=== PATIENT | female | born 1965 | race Caucasian/White ===

== ENCOUNTER 2017-01-12 02:17 | Emergency (ER) | payer OTHER ==
[~2017-01-12] VITALS: Ht 160 cm; Wt 68.9 kg
[2017-01-12 02:24] VITALS: BP 133/75
== END 2017-01-12 03:33 | disposition home or self-care (01) ==
LOC: ER 02:17
DX: J40 Bronchitis, not specified as acute or chronic (principal); F17.210 Nicotine dependence, cigarettes, uncomplicated
CPT/HCPCS: 71010; 99283; 99406; A4606; Z7610